=== PATIENT | female | born 1965 | race African-American/Black ===

== ENCOUNTER 2021-09-20 08:12 | Emergency (ER) | payer OTHER, BC ==
[~2021-09-20] VITALS: Ht 165.1 cm; Wt 93.5 kg
[2021-09-20] VITALS (11 sets, daily range): BP systolic 113–159; BP diastolic 77–103
[2021-09-20 08:51] LABS: URINE BILIRUBIN - DIPSTICK NEGATIVE (NEGATIVE); URINE BLOOD DIPSTICK NEGATIVE (NEGATIVE); URINE COLOR YELLOW; URINE GLUCOSE - DIPSTICK NEGATIVE (NEGATIVE); URINE KETONE NEGATIVE (NEGATIVE); URINE LEUK ESTERASE NEGATIVE (NEGATIVE); URINE PH 5.5 (4.5-8.0); URINE PROTEIN - DIPSTICK NEGATIVE (NEG-TRACE); URINE SPECIFIC GRAVITY >=1.030; URINE UROBILINOGEN - DIPSTICK 0.2 E.U./dL (0.2)
[2021-09-20 09:16] LABS: URINE NITRITE - DIPSTICK NEGATIVE (Negative)
[2021-09-20] MEDS ORDERED: FLEXERIL5 M1 PO (10:31)
[2021-09-20] MEDS ORDERED: MELOXICAM7.5 MG PO (10:31)
== END 2021-09-20 11:20 | disposition home or self-care (01) | DRG 552 ==
LOC: ED 08:12
PROVIDERS: Internal Medicine
DX: M54.2 Cervicalgia (principal); R51.9 Headache, unspecified; M62.838 Other muscle spasm; I10 Essential (primary) hypertension; V59.40XA Driver of pick-up truck or van injured in collision with unspecified motor vehicles in traffic accident, initial encounter